=== PATIENT | female | born 1985 | race African-American/Black ===

== ENCOUNTER 2021-02-15 08:54 | Emergency (ER) | payer OTHER, SELFPAY ==
--- NOTE | ~2021-02-15 | XR_ITS ---
EXAMINATION: XR wrist LT min 3V DATE: 02/15/2021 09:32 INDICATION: Radial sided left wrist pain. TECHNIQUE: 4 views of left wrist were obtained. COMPARISON: None. FINDINGS: Bone alignment is normal. No fracture. 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 Joint s paces are well maintained. IMPRESSION: 1. No fracture. Reviewed, dictated and finalized at location B. IMPRESSION: 1. No fracture.
--- NOTE | 2021-02-15 08:59 | ED.GENADULT ---
HPI - General Adult General Chief complaint: Extremity Injury, Upper Stated complaint: Wrist Pain Time Seen by Provider: 02/15/21 08:59 Source: patient Mode of arrival: ambulatory Limitations: no limitations History of Present Illness HPI narrative: 35-year-old female patient presents to the [facility] with complaints of left wrist pain for the past 3 weeks. Patient states she did fall about a month ago onto her left side and states that her whole left side was hurting but denies any specific injury to her wrist at that time. 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 Patient does have a young child in a car seat which she states that now she needs help getting the car seat in and out. Patient denies taking anything for pain. Denies splinting the wrist. Related Data Home Medications Medication Instructions Recorded Confirmed calcium citrate-vitamin D3 1 tablet PO DAILY 02/15/21 02/15/21 [Calcitrate-Vitamin D] Allergies Allergy/AdvReac Type Severity Reaction Status Date / Time No Known Allergies Allergy Verified 02/15/21 09:22 Review of Systems Review of Systems: Narrative: CONSTITUTIONAL: Denies fever, chills, or sweats. EYES: Denies visual changes, redness, or discharge. ENT: Denies rhinorrhea, congestion, sore throat, or otalgia. CARDIOVASCULAR: Denies chest pain, palpitations, or edema. RESPIRATORY: Denies cough or dyspnea. GASTROINTESTINAL: Denies abdominal pain, nausea, vomiting, or diarrhea. GENITOURINARY: Denies dysuria or hematuria. SKIN: Denies rash or itching. MUSCULOSKELETAL: Denies back pain, joint pain, or myalgia. Positive left wrist pain NEUROLOGIC: Denies headache, numbness, or weakness. PSYCHIATRIC: Denies anxiety or depression. [facility] Past Medical History Medical History Pneumonia Surgical History Surgical History S/P LEEP (status post loop electrosurgical excision procedure) Comments At the time of my signature I agree with nursing past medical history, surgical, social, and family history. There is no relevant family history pertinent to the presenting complaint. Exam Narrative: Exam Narrative: GENERAL: Well-appearing, well-nourished, and in no acute distress. HEAD: Normocephalic, atraumatic. EYES: PERRLA and EOMI. ENT: Nares clear, no rhinorrhea or epistaxis. Mucous membranes moist. NECK: Supple. No lymphadenopathy CHEST: Clear to auscultation. No respiratory distress. HEART: Regular rate and rhythm. No murmur heard. Normal peripheral pulses. ABDOMEN: Soft, nontender, nondistended, normal active bowel sounds. EXTREMITIES: The L wrist is without obvious asymmetry or deformity when compared to the R wrist. Patient is right-hand dominant. No surface trauma, open wounds, swelling, or obvious deformity. No overlying erythema or warmth. No bony crepitus or focal area of TTP. No scaphoid fullness or tenderness to direct palpation or axial load. Normal flex/extension, ulnar/radial deviation. Motor/sensory function of ulnar, radial, median nerves intact. Ulnar and radial pulses intact. Negaitve Phalen's/Tinel's sign. Positive Kay test. SKIN: Warm, dry, no rash. NEURO: No focal deficits. Alert and oriented x3. Course Vital Signs Vital signs: Vital Signs Temperature 36.8 C 02/15/21 09:09 Pulse Rate 80 02/15/21 09:09 Respiratory Rate 16 02/15/21 09:09 Blood Pressure 152/67 H 02/15/21 09:09 Pulse Oximetry 99 02/15/21 09:09 Temperature 36.8 C 02/15/21 09:09 Pulse Rate 80 02/15/21 09:09 Respiratory Rate 16 02/15/21 09:09 Blood Pressure 152/67 H 02/15/21 09:09 Pulse Oximetry 99 02/15/21 09:09 Vital signs reviewed The patient has been informed that they may have pre-hypertension or Hypertension based on a BP reading in the department. I recommend th
[2021-02-15 09:09] VITALS: BP 152/67; PULSE 80; RESP 16; TEMP 36.8; O2SAT 99
== END 2021-02-15 09:54 | disposition home or self-care (01) ==
PROVIDERS: Emergency Provider Nurse Practitioner Family
DX: M65.4 Radial styloid tenosynovitis [de Quervain] (principal)
CPT/HCPCS: 73110; 99213; G0463